=== PATIENT | male | born 1935 | race Caucasian/White ===

== ENCOUNTER 2022-07-07 15:20 | Inpatient (IN) | payer MEDICARE, MEDICAID ==
[~2022-07-07] VITALS: Ht 185.4 cm; Wt 75.7 kg
[2022-07-07] MEDS ORDERED: SODIUM CHLORIDE 0.9% 1,000 ML IV ONE (15:45)
[2022-07-07] MEDS ORDERED: VANCOMYCIN 1G PREMIX 200 ML IV ONE (16:15)
[2022-07-07] MEDS ORDERED: SODIUM CHLORIDE 0.9% 1000ML BAG (SEPSIS BOLUS) IV ONE (16:15)
[2022-07-07] MEDS ORDERED: PIPERACILLIN/TAZ 3.375G PREMIX 50 ML IV ONE (16:15)
[2022-07-07 16:39] LABS: HEMATOCRIT. 33.3 % (42.0-52.0); HEMOGLOBIN. 10.8 g/dL (14.0-18.0); MEAN CORPUSCULAR HEMOGLOBIN 26.9 pg (28.0-32.0); MEAN CORPUSCULAR VOLUME 82.8 fL (80.0-94.0); MEAN PLATELET VOLUME 8.9 fl (7.4-10.4); PLATELET 241 x1000/uL (130-400); RED BLOOD CELL COUNT 4.02 mill/uL (4.7-6.1); RED CELL DISTRIBUTION WIDTH 17.8 % (11.6-14.6)
[2022-07-07 16:50] LABS: CHLORIDE 107 mEq/L (98-107); PROTHROMBIN TIME 11.2 sec (9.6-11.0)
[2022-07-07 17:49] LABS: PLATELET ESTIMATE NORMAL
[2022-07-07] MEDS ORDERED: VANCOMYCIN 1,000 MG in DEXT 5% WATER 250 ML IV NR (18:00)
[2022-07-07] MEDS ORDERED: PIPERACILLIN/TAZ 3.375G PREMIX 50 ML IV NR (20:30)
[2022-07-07 22:05] VITALS: BP_SYST 100; BP_SYST 106; BP_DIAS 46; BP_DIAS 50
[2022-07-08] VITALS: BP 95/45
[2022-07-08] MEDS: SODIUM CHLORIDE 0.9% 1,000 ML IV SCH ×3 (00:21→19:30)
[2022-07-08 04:00] VITALS: BP 98/45
[2022-07-08] MEDS: PIPERACILLIN/TAZOBACTAM 3.375 G in DEXTROSE 5% WATER 50 ML IV SCH ×3 (05:28→22:13)
[2022-07-08 08:14] LABS: HEMATOCRIT. 30.5 % (42.0-52.0); MEAN CORPUSCULAR HEMOGLOBIN 27.1 pg (28.0-32.0); PLATELET 204 x1000/uL (130-400); RED BLOOD CELL COUNT 3.68 mill/uL (4.7-6.1); RED CELL DISTRIBUTION WIDTH 18.1 % (11.6-14.6)
[2022-07-08] MEDS: LEVETIRACETAM 500MG TABLET PO SCH ×2 (08:43→22:13)
[2022-07-08] MEDS: PANTOPRAZOLE SODIUM 40 MG/VIAL IV SCH (08:43)
[2022-07-08 11:30] LABS: PLATELET ESTIMATE NORMAL
[2022-07-08] MEDS ORDERED: VANCOMYCIN 1.25GM PMX (XELLIA) 250 ML IV SCH (17:00)
[2022-07-08] MEDS ORDERED: ONDANSETRON HCL 4MG/2ML INJ IV PRN (19:15)
[2022-07-08] MEDS ORDERED: MAGNESIUM/ALUMINUM HYDROXIDE/SIMETHICONE 30ML UDC PO PRN (19:15)
[2022-07-08] MEDS ORDERED: DOCUSATE SODIUM 100MG CAPSULE PO PRN (19:15)
[2022-07-08] MEDS ORDERED: CLONIDINE 0.1MG TABLET PO PRN (19:15)
[2022-07-08] MEDS ORDERED: NALOXONE HCL 0.4MG/ML VIAL IV PRN (19:45)
[2022-07-08 20:00] VITALS: BP 122/50
[2022-07-08] MEDS: ENOXAPARIN 30MG/0.3ML SYR SUBCUT SCH ×2 (22:13→22:20)
[2022-07-09] VITALS: BP 123/51
[2022-07-09 04:00] VITALS: BP 128/52
[2022-07-09] MEDS: PIPERACILLIN/TAZOBACTAM 3.375 G in DEXTROSE 5% WATER 50 ML IV SCH ×3 (05:24→21:17)
[2022-07-09] MEDS: HYDROCODONE/ACETAMINOPHEN 5/325MG TABLET PO PRN (05:50)
[2022-07-09 07:24] LABS: HEMATOCRIT. 29.2 % (42.0-52.0); HEMOGLOBIN. 9.6 g/dL (14.0-18.0); MEAN CORPUSCULAR HEMOGLOBIN 27.3 pg (28.0-32.0); MEAN CORPUSCULAR VOLUME 82.8 fL (80.0-94.0); MEAN PLATELET VOLUME 9.4 fl (7.4-10.4); PLATELET 173 x1000/uL (130-400); RED BLOOD CELL COUNT 3.53 mill/uL (4.7-6.1); RED CELL DISTRIBUTION WIDTH 18.3 % (11.6-14.6)
[2022-07-09 08:00] VITALS: BP 92/48
[2022-07-09] MEDS: LEVETIRACETAM 500MG TABLET PO SCH ×2 (08:56→21:17)
[2022-07-09] MEDS: PANTOPRAZOLE SODIUM 40 MG/VIAL IV SCH (08:56)
[2022-07-09 12:07] LABS: CHLORIDE 109 mEq/L (98-107)
[2022-07-09 12:30] VITALS: BP 104/68
[2022-07-09 13:39] LABS: PHOSPHORUS 3.4 mg/dL (2.5-4.9); T4 FREE 1.01 ng/dL (0.76-1.46)
[2022-07-09] MEDS: SODIUM CHLORIDE 0.9% 1,000 ML IV SCH (13:51)
[2022-07-09 13:59] LABS: PLATELET ESTIMATE NORMAL
[2022-07-09 20:00] VITALS: BP 95/47
[2022-07-09] MEDS: RISPERIDONE 0.25MG TABLET PO SCH (21:17)
[2022-07-09] MEDS ORDERED: CEFTRIAXONE 1,000 MG in DEXTROSE 5% WATER 50 ML IV SCH (22:00)
[2022-07-10] VITALS: BP 102/46
[2022-07-10 04:00] VITALS: BP 96/47
[2022-07-10] MEDS: SODIUM CHLORIDE 0.9% 1,000 ML IV SCH ×2 (04:50→21:30)
[2022-07-10 08:17] VITALS: BP 104/50
[2022-07-10] MEDS: RISPERIDONE 0.25MG TABLET PO SCH ×2 (09:51→21:40)
[2022-07-10] MEDS: FAMOTIDINE 20MG TABLET PO SCH (09:51)
[2022-07-10] MEDS: LEVETIRACETAM 500MG TABLET PO SCH ×2 (09:51→21:40)
[2022-07-10 11:46] VITALS: BP 103/52
[2022-07-10 16:19] VITALS: BP 97/48
[2022-07-10 20:00] VITALS: BP 110/47
[2022-07-10] MEDS: ENOXAPARIN 30MG/0.3ML SYR SUBCUT SCH (20:00)
[2022-07-11] VITALS (7 sets, daily range): BP systolic 104–140; BP diastolic 45–61
[2022-07-11] MEDS: LINEZOLID 600MG TABLET PO SCH ×2 (09:00→20:34)
[2022-07-11] MEDS: FAMOTIDINE 20MG TABLET PO SCH (09:00)
[2022-07-11] MEDS: LEVETIRACETAM 500MG TABLET PO SCH ×3 (09:00→20:33)
[2022-07-11] MEDS: RISPERIDONE 0.25MG TABLET PO SCH (09:00)
[2022-07-11] MEDS ORDERED: LEVOFLOXACIN 500MG TABLET PO SCH (11:00)
[2022-07-11] MEDS: RISPERIDONE 1MG TABLET PO SCH ×2 (13:12→20:39)
[2022-07-11] MEDS ORDERED: LORAZEPAM 2MG/ML CPJ IV PRN (13:15)
[2022-07-11] MEDS ORDERED: HALOPERIDOL LACTATE 5MG/ML VIAL IM NR (14:15)
[2022-07-11] MEDS: ENOXAPARIN 30MG/0.3ML SYR SUBCUT SCH (20:37)
[2022-07-11] MEDS: HYDROCODONE/ACETAMINOPHEN 5/325MG TABLET PO PRN (20:52)
[2022-07-12 08:00] VITALS: BP 128/68
[2022-07-12] MEDS ORDERED: HALOPERIDOL LACTATE 5MG/ML VIAL IM NR (09:00)
[2022-07-12] MEDS: LEVETIRACETAM 500MG TABLET PO SCH ×2 (09:29→20:41)
[2022-07-12] MEDS: FAMOTIDINE 20MG TABLET PO SCH (09:29)
[2022-07-12] MEDS: RISPERIDONE 1MG TABLET PO SCH ×4 (09:29→21:26)
[2022-07-12] MEDS: LINEZOLID 600MG TABLET PO SCH ×4 (09:30→21:26)
[2022-07-12 12:00] VITALS: BP 118/51
[2022-07-12] MEDS: LEVOFLOXACIN 250MG TABLET PO SCH (14:02)
[2022-07-12 16:00] VITALS: BP 120/60
[2022-07-12 20:00] VITALS: BP 129/67
[2022-07-12] MEDS: ENOXAPARIN 30MG/0.3ML SYR SUBCUT SCH (20:00)
[2022-07-13] VITALS: BP 120/68
[2022-07-13 04:00] VITALS: BP 128/71
[2022-07-13 07:43] VITALS: BP 139/69
[2022-07-13] MEDS: RISPERIDONE 1MG TABLET PO SCH ×2 (09:17→20:56)
[2022-07-13] MEDS: LEVETIRACETAM 500MG TABLET PO SCH ×2 (09:17→20:55)
[2022-07-13] MEDS: FAMOTIDINE 20MG TABLET PO SCH (09:17)
[2022-07-13] MEDS: LINEZOLID 600MG TABLET PO SCH ×2 (09:17→20:56)
[2022-07-13] MEDS: LEVOFLOXACIN 250MG TABLET PO SCH (11:39)
[2022-07-13 12:00] VITALS: BP 108/76
[2022-07-13 16:00] VITALS: BP 174/73
[2022-07-13 20:00] VITALS: BP 115/47
[2022-07-13] MEDS: ENOXAPARIN 30MG/0.3ML SYR SUBCUT SCH (20:00)
[2022-07-14] VITALS: BP 114/54
[2022-07-14 04:00] VITALS: BP 109/55
[2022-07-14 08:00] VITALS: BP 94/44
[2022-07-14] MEDS: LINEZOLID 600MG TABLET PO SCH ×3 (10:33→21:00)
[2022-07-14] MEDS: LEVOFLOXACIN 250MG TABLET PO SCH (10:33)
[2022-07-14] MEDS: RISPERIDONE 1MG TABLET PO SCH ×3 (10:33→21:00)
[2022-07-14] MEDS: LEVETIRACETAM 500MG TABLET PO SCH ×3 (10:33→21:00)
[2022-07-14] MEDS: FAMOTIDINE 20MG TABLET PO SCH (10:33)
[2022-07-14 12:00] VITALS: BP 143/62
[2022-07-14 16:00] VITALS: BP 98/44
[2022-07-14] MEDS: ENOXAPARIN 30MG/0.3ML SYR SUBCUT SCH (20:00)
[2022-07-15 07:51] VITALS: BP 117/59
[2022-07-15] MEDS: LINEZOLID 600MG TABLET PO SCH ×2 (09:20→21:34)
[2022-07-15] MEDS: FAMOTIDINE 20MG TABLET PO SCH (09:20)
[2022-07-15] MEDS: LEVETIRACETAM 500MG TABLET PO SCH ×2 (09:20→21:34)
[2022-07-15] MEDS: RISPERIDONE 1MG TABLET PO SCH ×2 (09:20→21:34)
[2022-07-15] MEDS: LEVOFLOXACIN 250MG TABLET PO SCH (11:25)
[2022-07-15 12:03] VITALS: BP 119/54
[2022-07-15] MEDS: ACETAMINOPHEN 325MG TABLET PO PRN (14:19)
[2022-07-15 15:44] VITALS: BP 106/51
[2022-07-15 20:00] VITALS: BP 107/54
[2022-07-15] MEDS: ENOXAPARIN 30MG/0.3ML SYR SUBCUT SCH (20:00)
[2022-07-16 08:00] VITALS: BP_SYST 117; BP_SYST 125; BP_DIAS 55; BP_DIAS 66
[2022-07-16] MEDS: FAMOTIDINE 20MG TABLET PO SCH (08:40)
[2022-07-16] MEDS: RISPERIDONE 1MG TABLET PO SCH ×2 (08:40→20:22)
[2022-07-16] MEDS: LEVETIRACETAM 500MG TABLET PO SCH ×2 (08:40→20:22)
[2022-07-16] MEDS: LINEZOLID 600MG TABLET PO SCH ×2 (08:40→20:22)
[2022-07-16 11:30] VITALS: BP 114/66
[2022-07-16 15:55] VITALS: BP 105/57
[2022-07-16] MEDS: ENOXAPARIN 30MG/0.3ML SYR SUBCUT SCH (20:00)
[2022-07-17] MEDS: RISPERIDONE 1MG TABLET PO SCH ×2 (08:31→20:50)
[2022-07-17] MEDS: LEVETIRACETAM 500MG TABLET PO SCH ×2 (08:31→20:50)
[2022-07-17] MEDS: FAMOTIDINE 20MG TABLET PO SCH (08:31)
[2022-07-17] MEDS: LINEZOLID 600MG TABLET PO SCH ×2 (08:32→20:50)
[2022-07-17 12:00] VITALS: BP 116/55
[2022-07-17] MEDS: ENOXAPARIN 30MG/0.3ML SYR SUBCUT SCH (20:00)
[2022-07-18 08:00] VITALS: BP 111/62
[2022-07-18] MEDS: RISPERIDONE 1MG TABLET PO SCH ×3 (08:58→20:38)
[2022-07-18] MEDS: LEVETIRACETAM 500MG TABLET PO SCH ×3 (08:58→20:38)
[2022-07-18] MEDS: FAMOTIDINE 20MG TABLET PO SCH (08:58)
[2022-07-18 16:00] VITALS: BP 108/54
[2022-07-18] MEDS: ENOXAPARIN 30MG/0.3ML SYR SUBCUT SCH (20:00)
[2022-07-19 07:53] VITALS: BP 116/66
[2022-07-19] MEDS: FAMOTIDINE 20MG TABLET PO SCH (09:11)
[2022-07-19] MEDS: LEVETIRACETAM 500MG TABLET PO SCH ×2 (09:11→21:13)
[2022-07-19] MEDS: RISPERIDONE 1MG TABLET PO SCH ×2 (09:11→21:13)
[2022-07-19 12:00] VITALS: BP 109/76
[2022-07-19 16:00] VITALS: BP 111/65
[2022-07-19] MEDS: ENOXAPARIN 30MG/0.3ML SYR SUBCUT SCH (21:13)
[2022-07-20 08:00] VITALS: BP 111/71
[2022-07-20] MEDS: FAMOTIDINE 20MG TABLET PO SCH (09:54)
[2022-07-20] MEDS: LEVETIRACETAM 500MG TABLET PO SCH ×2 (09:55→20:41)
[2022-07-20] MEDS: RISPERIDONE 1MG TABLET PO SCH ×2 (09:55→20:41)
[2022-07-20] MEDS: ACETAMINOPHEN 325MG TABLET PO PRN (10:13)
[2022-07-20 16:00] VITALS: BP 119/57
[2022-07-20] MEDS: ENOXAPARIN 30MG/0.3ML SYR SUBCUT SCH (20:00)
[2022-07-21 08:00] VITALS: BP 111/58
[2022-07-21] MEDS: FAMOTIDINE 20MG TABLET PO SCH (08:02)
[2022-07-21] MEDS: LEVETIRACETAM 500MG TABLET PO SCH ×2 (08:02→20:09)
[2022-07-21] MEDS: RISPERIDONE 1MG TABLET PO SCH ×2 (08:02→20:12)
[2022-07-21 12:00] VITALS: BP 112/57
[2022-07-21 16:00] VITALS: BP 114/66
[2022-07-21] MEDS: ENOXAPARIN 30MG/0.3ML SYR SUBCUT SCH (20:00)
[2022-07-21 20:02] VITALS: BP 118/89
[2022-07-22 00:05] VITALS: BP 139/80
[2022-07-22 04:05] VITALS: BP 139/80
[2022-07-22 08:00] VITALS: BP 119/59
[2022-07-22] MEDS: LEVETIRACETAM 500MG TABLET PO SCH ×2 (09:17→20:15)
[2022-07-22] MEDS: RISPERIDONE 1MG TABLET PO SCH ×2 (09:17→20:16)
[2022-07-22] MEDS: FAMOTIDINE 20MG TABLET PO SCH (09:17)
[2022-07-22 12:00] VITALS: BP 113/53
[2022-07-22 16:00] VITALS: BP 107/57
[2022-07-22] MEDS: ENOXAPARIN 30MG/0.3ML SYR SUBCUT SCH (20:00)
[2022-07-23 08:00] VITALS: BP 128/66
[2022-07-23] MEDS: RISPERIDONE 1MG TABLET PO SCH ×3 (08:12→20:31)
[2022-07-23] MEDS: FAMOTIDINE 20MG TABLET PO SCH ×2 (08:12→08:30)
[2022-07-23] MEDS: LEVETIRACETAM 500MG TABLET PO SCH ×2 (08:12→20:31)
[2022-07-23 16:00] VITALS: BP 100/63
[2022-07-23] MEDS: ACETAMINOPHEN 325MG TABLET PO PRN ×2 (16:58→22:37)
[2022-07-23 20:00] VITALS: BP 100/43
[2022-07-23] MEDS: ENOXAPARIN 30MG/0.3ML SYR SUBCUT SCH ×2 (20:00→20:31)
[2022-07-24] VITALS: BP 101/59
[2022-07-24 08:00] VITALS: BP 128/63
[2022-07-24] MEDS: LEVETIRACETAM 500MG TABLET PO SCH ×2 (08:38→21:00)
[2022-07-24] MEDS: FAMOTIDINE 20MG TABLET PO SCH (08:38)
[2022-07-24] MEDS: RISPERIDONE 1MG TABLET PO SCH ×2 (08:38→21:00)
[2022-07-24] MEDS ORDERED: NA PHOS,M-B/NA PHOS,DI-BA ENEMA 118ML PR NR (14:30)
[2022-07-24] MEDS ORDERED: LACTULOSE 20G/30ML UDC PO NR (15:00)
[2022-07-24] MEDS ORDERED: SORBITOL 70% SOLN 30ML PO NR (15:30)
[2022-07-24 16:00] VITALS: BP 128/62
[2022-07-24] MEDS: ENOXAPARIN 30MG/0.3ML SYR SUBCUT SCH (20:00)
[2022-07-24 21:00] VITALS: BP 155/70
[2022-07-25 04:00] VITALS: BP 123/54
[2022-07-25 08:00] VITALS: BP 111/54
[2022-07-25] MEDS: LEVETIRACETAM 500MG TABLET PO SCH ×2 (08:13→20:37)
[2022-07-25] MEDS: RISPERIDONE 1MG TABLET PO SCH ×2 (08:13→20:37)
[2022-07-25] MEDS: ACETAMINOPHEN 325MG TABLET PO PRN (08:13)
[2022-07-25] MEDS: FAMOTIDINE 20MG TABLET PO SCH (08:13)
[2022-07-25] MEDS: ENOXAPARIN 30MG/0.3ML SYR SUBCUT SCH (20:00)
[2022-07-26 08:00] VITALS: BP 125/52
[2022-07-26] MEDS: RISPERIDONE 1MG TABLET PO SCH (09:02)
[2022-07-26] MEDS: FAMOTIDINE 20MG TABLET PO SCH (09:02)
[2022-07-26] MEDS: LEVETIRACETAM 500MG TABLET PO SCH (09:02)
[2022-07-26 12:00] VITALS: BP 111/55
[2022-07-26 16:00] VITALS: BP 103/57
[2022-07-26 16:48] VITALS: BP 130/66
[2022-07-26 20:00] VITALS: BP 133/50
== END 2022-07-26 20:00 | DRG 871 ==
LOC: ER 15:20 → 6WST 19:31 → EDBEDREQ 19:33 → ENRESERV 19:59 → 8WST 07-19 11:05
PROVIDERS: ADMIT Internal Medicine; ATTEND Internal Medicine
DX: A41.89 Other specified sepsis (principal); G93.41 Metabolic encephalopathy; R65.21 Severe sepsis with septic shock; J18.9 Pneumonia, unspecified organism; N17.9 Acute kidney failure, unspecified; E44.0 Moderate protein-calorie malnutrition; F20.9 Schizophrenia, unspecified; F31.9 Bipolar disorder, unspecified; I10 Essential (primary) hypertension; G40.909 Epilepsy, unspecified, not intractable, without status epilepticus; R09.89 Other specified symptoms and signs involving the circulatory and respiratory systems; Z20.822 Contact with and (suspected) exposure to COVID-19; D64.9 Anemia, unspecified; B96.89 Other specified bacterial agents as the cause of diseases classified elsewhere; E87.70 Fluid overload, unspecified; Z86.73 Personal history of transient ischemic attack (TIA), and cerebral infarction without residual deficits; Z95.0 Presence of cardiac pacemaker; Z68.22 Body mass index [BMI] 22.0-22.9, adult; Z91.199 Patient's noncompliance with other medical treatment and regimen due to unspecified reason
CPT/HCPCS: 36415; 71045; 76770; 80048; 80053; 80076; 80202; 83605; 83735; 83880; 84100; 84145; 84439; 84443; 84484; 85025; 86850; 86900; 87077; 87186; 87426; 93306; 97110; 97116; 97162; 97166; 97530; 97535; 99291; C1893; C9113; J0696; J1650; J2060; J2543; J3370; J7030; J7060